=== PATIENT | male | born 1960 | race Caucasian/White ===

== ENCOUNTER 2018-12-13 16:24 | Emergency (ER) | payer SELFPAY ==
[2018-12-13] MEDS ORDERED: Lidocaine 1% 20 ML MDV INJECT ONE ×2 (17:12→18:25)
[2018-12-13] MEDS ORDERED: Bupivacaine 0.5% 10 ML SDV INJECT ONE (17:14)
[2018-12-13] MEDS ORDERED: Diphtheria,Pertussis(Acell),Tetanus Vaccine 0.5 ML Syringe IM ONE (17:18)
--- NOTE | 2018-12-13 17:24 | EDM.PDOC ---
<Anson Montesinos - Last Filed: 12/13/18 19:23> ED HPI GENERAL MEDICAL PROBLEM - General Chief Complaint: Laceration Stated Complaint: HAND LAC Time Seen by Provider: 12/13/18 16:50 - Related Data Allergies Allergy/AdvReac Type Severity Reaction Status Date / Time No Known Allergies Allergy Verified 12/13/18 16:51 Home Meds: Home Meds Cephalexin [Keflex] 500 mg PO Q8HR #14 capsule 12/13/18 [Rx] ED SKIN PROCEDURES - Laceration/Wound Repair Left Anterior Lateral Hand Lac/Wound length In cm: 8 Appearance: Linear, Clean Distal NVT: Neuro & Vascular Intact, No Tendon Injury Anesthetic Type: Local Local Anesthesia - Bupivicaine (Marcaine): 0.25% Plain Skin Prep: Saline Suture Size: 3-0 # of Sutures: 23 Suture Type: Nylon Suture Size: 4-0 # of Sutures: 6 Repaired with: Vicryl Course - Vital Signs Last Recorded V/S: Last Vital Signs Temp 98.3 F 12/13/18 16:51 Pulse 103 H 12/13/18 16:51 Resp 20 12/13/18 16:51 BP 158/96 H 12/13/18 16:51 Pulse Ox 98 12/13/18 16:51 - Orders/Labs/Meds Orders: Active Orders 24 hr Category Date Time Status Vaccines to be Administered [RC] PER UNIT ROUTINE Care 12/13/18 17:18 Inactive Meds: Medications Discontinued Medications Generic Name Dose Route Start Last Admin Trade Name Freq PRN Reason Stop Dose Admin Bupivacaine HCl 10 ml 12/13/18 17:14 12/13/18 18:24 Sensorcaine-Mpf 0.5% INJECT 12/13/18 17:15 10 ml ONETIME ONE Administration Cephalexin 500 mg 12/13/18 19:23 12/13/18 19:35 Keflex PO 12/13/18 19:24 500 mg ONETIME ONE Administration Diphtheria/Tetanus/Acell Pertussis 0.5 ml 12/13/18 17:18 Adacel IM 12/13/18 17:19 .ONCE ONE Lidocaine HCl 20 ml 12/13/18 17:12 12/13/18 19:19 Xylocaine 1% INJECT 12/13/18 17:13 Not Given ONETIME ONE Lidocaine HCl Confirm 12/13/18 17:54 12/13/18 19:19 Xylocaine 1% Administered 12/13/18 17:55 Not Given Dose 50 ml .ROUTE .STK-MED ONE Lidocaine HCl 50 ml 12/13/18 18:25 12/13/18 19:19 Xylocaine 1% INJECT 12/13/18 18:26 50 ml ONETIME ONE Administration - Re-Assessments/Exams Free Text/Narrative Re-Assessment/Exam: 12/13/18 19:20 Have assumed care from MARIA A Cervantes to repair very large deep lac thenar aspect of L hand. I agree with her hx and exam as documented. Departure - Departure Time of Disposition: 19:20 Disposition: Home, Self-Care Clinical Impression: Laceration of left hand Qualifiers: Encounter type: initial encounter Foreign body presence: without foreign body Qualified Code(s): S61.412A - Laceration without foreign body of left hand, initial encounter - Discharge Information Prescriptions: Cephalexin [Keflex] 500 mg PO Q8HR #14 capsule Instructions: Stitches, [place], or Adhesive Wound Closure, [id number] Referrals: PCP,Not In Area [Primary Care Provider] - Forms: ED Department Discharge Additional Instructions: Laceration care instr. Stitches can be removed in 11 days. They can be removed at our [facility] ThursdayDecember 24. Call [phone] for appt. If that does not work for you they can be removed at our ED December 25 or December 26. Ice packs and elevation for swelling. You can leave current pressure dressing on for 48 hours, then change dressing once or twice daily. Keep as dry and clean as possible. Tylenol 2-3 times daily if needed for pain. Cephalexin antibiotic 500 mg 3 times daily for the next 5 days. Have rechecked any sign of infection. - My Orders Last 24 Hours: My Active Orders 12/13/18 17:18 Vaccines to be Administered [RC] PER UNIT ROUTINE - Assessment/Plan Last 24 Hours: My Active Orders 12/13/18 17:18 Vaccines to be Administered [RC] PER UNIT ROUTINE <Jazmin De La Garza - Last Filed: 12/13/18 22:39> ED HPI GENERAL MEDICAL PROBLEM - General Source of Information: Reports: Patient, RN Notes Reviewed History Limitations: Reports: No Limitations - History of Present Illness INITIAL COMMENTS - FREE TEXT/NARRATIVE: Patient is a 58-year-old male presents to the ED for evaluation of a hand laceration. This is on his left hand, over the thenar eminence. The patient states he was at work using a hook knife when he ended up cutting his hand. The laceration itself is gaping, 2 cm wide and roughly 6-7 cm long. The patient denies any numbness or tingling into his left extremity. He is able to make a fist, the wound is actively bleeding, however it is somewhat controlled with a pressure gauze. The patient states his last tetanus booster was roughly 7 years ago, he notes that he does not need another one until 2020. He denies any allergies to medications at this time. Patient states he is right hand dominant. Left Hand Pain Score (Numeric/FACES): 3 Past Medical History - Past Health History Medical/Surgical History: Denies Medical/Surgical History Social & Family History - Tobacco Use Smoking Status *Q: Current Every Day Smoker Years of Tobacco use: 40 Packs/Tins Daily: 1 - Caffeine Use Caffeine Use: Reports: Coffee - Recreational Drug Use Recreational Drug Use: No ED ROS GENERAL - Review of Systems Review Of Systems: See Below Constitutional: Reports: No Symptoms HEENT: Reports: No Symptoms Respiratory: Reports: No Symptoms Cardiovascular: Reports: No Symptoms Endocrine: Reports: No Symptoms GI/Abdominal: Reports: No Symptoms : Reports: No Symptoms Musculoskeletal: Reports: No Symptoms Skin: Reports: Wound (See HPI) Neurological: Denies: Numbness, Tingling Psychiatric: Reports: No Symptoms Hematologic/Lymphatic: Reports: No Symptoms ED EXAM, SKIN/RASH Exam: See Below Exam Limited By: No Limitations General Appearance: Alert, WD/WN, No Apparent Distress Respiratory/Chest: No Respiratory Distress, Lungs Clear, Normal Breath Sounds, No Accessory Muscle Use, Chest Non-Tender Cardiovascular: Normal Peripheral Pulses, Regular Rate, Rhythm, No Murmur Peripheral Pulses: 3+: Radial (L), Radial (R) Extremities: Normal Inspection (Linear wound noted to thenar eminence of left hand, this is 6-7 cm in length, and 2 cm gaping open.), Normal Range of Motion, Normal Capillary Refill Neurological: Alert, Oriented, Normal Cognition, Normal Gait, No Motor/Sensory Deficits Psychiatric: Normal Affect, Normal Mood Skin: Warm, Dry, Normal Color, Wound/Incision (Linear wound noted to thenar eminence of left hand, this is 6-7 cm in length, and 2 cm gaping open.) Location, Skin: Upper Extremity, Left ED SKIN PROCEDURES - Laceration/Wound Repair Left Lateral Proximal Hand Lac/Wound length In cm: 6 Appearance: Muscle, Linear, Clean Distal NVT: Neuro & Vascular Intact, No Tendon Injury Skin Prep: Chlorhexidine (Hibiciens) Saline Irrigation (cc's): 1,000 (copious) Closed with: Sutures Suture Type: Prolene, Interrupted, Simple Sterile Dressing Applied: Nurse Tetanus Status Addressed: Yes Complications: No Course - Re-Assessments/Exams Free Text/Narrative Re-Assessment/Exam: 12/13/18 17:35 I did initially assessed the patient, however the wound is fairly large and I did have Dr. Montesinos, asses it with me and he states that he would feel more comfortable repairing the laceration himself. I will relinquish care to Dr. Montesinos at this time. Departure - Departure Condition: Fair - Discharge Information *PRESCRIPTION DRUG MONITORING PROGRAM REVIEWED*: No *COPY OF PRESCRIPTION DRUG MONITORING REPORT IN PATIENT SHANDRA: No
[2018-12-13] MEDS ORDERED: Lidocaine 1% 50 ML MDV ONE (17:54)
[2018-12-13] MEDS ORDERED: Cephalexin 500 MG Cap PO ONE (19:23)
== END 2018-12-13 19:34 | disposition home or self-care (01) ==
LOC: JD.ED 16:24
DX: S61.412A Laceration without foreign body of left hand, initial encounter (principal); F17.210 Nicotine dependence, cigarettes, uncomplicated; W26.0XXA Contact with knife, initial encounter
CPT/HCPCS: 12004; 99282; A9270; J2001; J3490; 12002; 12044; 99283

== ENCOUNTER 2018-12-15 11:09 | Emergency (ER) | payer SELFPAY ==
--- NOTE | 2018-12-15 11:51 | EDM.PDOC ---
ED HPI GENERAL MEDICAL PROBLEM - General Chief Complaint: Wound Recheck Stated Complaint: L HAND/ARM SWELLING Time Seen by Provider: 12/15/18 11:20 Source of Information: Reports: Patient, Old Records History Limitations: Reports: No Limitations - History of Present Illness INITIAL COMMENTS - FREE TEXT/NARRATIVE: 58 year old male presents for evaluation of his left hand wound. Patient was seen in the ER 2 days ago for a laceration by a hook knife to the left hand, thenar eminence. Patient had approximately [address] Montesinos. he was prescribed cephalexin 500mg tid x 5 days. Patient reports he is taking the cephalexin. He is concerned about the bruising, swelling and increased warmth to the area. Reports he had numbness and tingling to the fingers initially after the injury but this has improved. He denies any drainage or discharge from the wound. No fevers, chills, nausea or vomiting. Reports some minor soreness and discomfort from ROM but nothing out of proportion. Tetanus is up to date. Patient is right handed. Left Hand Pain Score (Numeric/FACES): 3 - Related Data Allergies Allergy/AdvReac Type Severity Reaction Status Date / Time No Known Allergies Allergy Verified 12/15/18 11:20 Home Meds: Home Meds Cephalexin [Keflex] 500 mg PO Q8HR #14 capsule 12/13/18 [Rx] Past Medical History - Past Health History Medical/Surgical History: Denies Medical/Surgical History Social & Family History - Tobacco Use Smoking Status *Q: Current Every Day Smoker Years of Tobacco use: 40 Packs/Tins Daily: 1 - Caffeine Use Caffeine Use: Reports: Coffee - Recreational Drug Use Recreational Drug Use: No ED ROS GENERAL - Review of Systems Review Of Systems: See Below Constitutional: Denies: Fever, Chills, Malaise GI/Abdominal: Denies: Nausea, Vomiting Skin: Reports: Bruising (distal volar wrist approximately 5cm in diameter ecchymosis, slight increased warmth, swelling present ), Wound (left hand thenar eminence approximately 7 cm in length, multiple sutures in place no drainage, healing; swelling present). Denies: Erythema Neurological: Denies: Numbness, Tingling ED EXAM, SKIN/RASH Exam: See Below Exam Limited By: No Limitations General Appearance: Alert, WD/WN, No Apparent Distress Throat/Mouth: Normal Inspection, Normal Voice, No Airway Compromise Respiratory/Chest: No Respiratory Distress Cardiovascular: Normal Peripheral Pulses Peripheral Pulses: 2+: Radial (L), Radial (R) Extremities: Normal Inspection, Normal Range of Motion (left hand and wrist) Neurological: Alert, Oriented, Normal Cognition Psychiatric: Normal Affect, Normal Mood Skin: Warm, Dry, Normal Color, Wound/Incision (left hand thenar eminence approximately 7 cm in length, multiple sutures in place no drainage, healing; swelling present), Other (distal volar wrist approximately 5cm in diameter ecchymosis, slight increased warmth, swelling present ;) Location, Skin: Upper Extremity, Left Characteristics: Linear Course - Vital Signs Last Recorded V/S: Last Vital Signs Temp 98.7 F 12/15/18 11:17 Pulse 95 12/15/18 11:17 Resp 16 12/15/18 11:17 BP 143/99 H 12/15/18 11:17 Pulse Ox 100 12/15/18 11:17 - Re-Assessments/Exams Free Text/Narrative Re-Assessment/Exam: 12/15/18 12:06 Normal healing appreciated. No change in antibiotics needed at this time. Will discharge home with close clinic follow-up. Discharge instructions as documented. Departure - Departure Time of Disposition: 12:09 Disposition: Home, Self-Care 01 Condition: Good Clinical Impression: Laceration of left hand Qualifiers: Encounter type: initial encounter Foreign body presence: without foreign body Qualified Code(s): S61.412A - Laceration without foreign body of left hand, initial encounter - Discharge Information *PRESCRIPTION DRUG MONITORING PROGRAM REVIEWED*: No *COPY OF PRESCRIPTION DRUG MONITORING REPORT IN PATIENT SHANDRA: No Referrals: PCP,None [Ordering Only Provider] - Vielka Melissa PA-C [Physician Retail Support Associate] - Forms: ED Department Discharge Additional Instructions: Continue with your current plan of care. Continue on the Keflex as prescribed. May take [id number] Motrin as needed for pain as well as help with swelling Make sure you are elevating the hand, above the level of heart as much as you are able to. Make sure you are utilizing ice to help with the swelling as well. may continue to use the Catarino bandage to help with compression. Follow up in the clinic on Thursday for a recheck of your hand. Follow-up with Vielka Melissa at 1:30 PM. She is at the [facility], the three-story clinic attached to the [facility] on the [place] side. Call [phone] if you have any scheduling complex to reschedule. Please return to the ER for symptoms change or worsen.
== END 2018-12-15 12:05 | disposition home or self-care (01) ==
LOC: JD.ED 11:09
DX: S61.412A Laceration without foreign body of left hand, initial encounter (principal); F17.210 Nicotine dependence, cigarettes, uncomplicated; W26.0XXA Contact with knife, initial encounter
CPT/HCPCS: 99281; 99282